=== PATIENT | female | born 1960 | race Caucasian/White ===

== ENCOUNTER → 2016-09-17 | Outpatient (CLI) | payer OTHER, BC ==
[~2016-09-17] MED LIST: ADULT LOW DOSE81 MG PO; BONIVA150 MG PO; FLOVENT HFA 2220 MC1 IH; FOLIC ACID 40400 MC1 PO; HYDROXYCHLOROQ200 M1 PO; LANSOPRAZOLE30 MG PO; LESSINA1 EACH PO; LOVASTAT10 PO; METOCLOPRAMIDE 55 MG PO; MUCINEX600 MG PO; NEURONTIN 400400 M1 PO; NEXIUM40 MG PO; NORCO 5-325 TA1 EACH PO; NOVOLOG100 UNIT/1; OS-CAL 500+D C1 EACH PO; PREDNISONE 5 MG5 M1 PO; PROVENTIL HFA6.7 G1 INH; QVAR8.7 G1 IH; RECLAST 55 MG/1002 IVPB; SEREVENT DISKU50 MCG IH; SM FISH OIL 1,1 EACH PO; SRONYX1 EACH PO; SYNTHROID112 MCG PO; UNIVASC7.5 MG PO; VITAMINC500 PO; XIFAXAN550 M1 PO; ZOFRAN ODT4 M1 PO; ZYRTEC10 M2 PO
== END ==
LOC: CAT 14:19
DX: C43.39 Malignant melanoma of other parts of face (principal); B18.2 Chronic viral hepatitis C; J45.909 Unspecified asthma, uncomplicated; M32.9 Systemic lupus erythematosus, unspecified; H92.01 Otalgia, right ear; E11.9 Type 2 diabetes mellitus without complications; H90.5 Unspecified sensorineural hearing loss

== ENCOUNTER → 2016-11-14 | Outpatient (CLI) | payer OTHER, BC | LOC: RAD 02:08 | DX: Z12.31 Encounter for screening mammogram for malignant neoplasm of breast (principal) ==

== ENCOUNTER → 2017-08-04 | Outpatient (CLI) | payer OTHER, BC ==
[~2017-08-04] VITALS: Ht 165.1 cm; Wt 77.1 kg
[~2017-08-04] MED LIST changes: +GABAPENTIN 100100 MG PO; +HUMALOG100 UNIT/1 SUBQ; +LEVOTHYROXINE137 MCG PO; +MOEXIPRIL HCL7.5 MG PO; +PRAVACHOL40 MG PO; +PREDNISONE 10 M10 MG PO; +QVAR8.7 G1 INH; +SEREVENT DISKU50 MCG INH
--- NOTE | ~2017-08-04 | S ---
[facility] [place] [address] SURGICAL PATH RPT PROCEDURE Name: CONNIE CARLOS Room #: REG MARCOS Mayes#: [id number] Admission: 08/04/17 Date of : 58 Discharge: Report #: [id number] Path Case #: [id number] PATHOLOGY REPORT COLLECTION DATE: 08/04/2017 RECEIVED DATE: 08/04/2017 SUBMITTING PHYS: Dr. Ezra Fernandez OTHER PHYS: Dr. Yanet Fong SPECIMEN(S) RECEIVED: A.Bx of gastritis B.Bx of random colon r/o colitis * * * * * * * * * * * * FINAL DIAGNOSIS: A. Gastric mucosa, gastritis, endoscopic biopsy: - Mild chronic inflammation with one fragment showing features of reactive gastropathy. - Negative for intestinal metaplasia or atrophy. - Negative for Helicobacter pylori. B. Large intestinal mucosa, random colon r/o colitis, endoscopic biopsy: - Findings compatible with collagenous colitis (please see comment). (IUV:enrique; 08/05/2017) COMMENT: A. Well-controlled Helicobacter pylori immunohistochemical stain performed on block A1- Negative. B. Examination shows thickened subepithelial collagen in a background of increased cellularity within the lamina propria, as well as increased apoptotic figures throughout the epithelium. Intraepithelial lymphocytosis is not identified. Findings are compatible with collagenous colitis. Please correlate clinically and follow-up as indicated. Part B co-reviewed by Dr. Zahira Maxwell. (IUV:enrique; 08/05/2017) PATHOLOGIST: Nela Torres M.D. REPORT ELECTRONICALLY SIGNED BY: Nela Torres M.D. DATE/TIME: 08/05/2017 14:06 * * * * * * * * * * * * GROSS PATHOLOGY: A. Received in formalin labeled "Connie Carlos, BX of gastritis," are 4 segments of cazares soft tissue measuring 1.4 x 1.1 x 0.3 cm in aggregate dimensions and ranging from 0.3 to 0.5 cm in maximum [address] [address] SURGICAL PATH RPT PROCEDURE Name: CONNIE CARLOS Room #: REG [facility]#: [id number] Admission: 08/04/17 Date of : 58 Discharge: Report #: [id number] Path Case #: [id number] dimension. The specimen is submitted entirely in cassette A1. B. Received in formalin labeled "Connie Terrance, BX of random colon, rule out colitis," are multiple (more than 10) segments of cazares soft tissue measuring 2.0 x 0.6 x 0.2 cm in aggregate dimensions and ranging from 0.2 to 0.3 cm in maximum dimension. The specimen is submitted entirely in cassette B1. (TSD; 08/04/2017) CLINICAL HISTORY: Pre-OP DX: Abdominal pain, change in bowel habits Post-OP DX: Gastritis, questionable colitis INITIAL CPT CODE(S): A; 82314, 28375 B; 77372 Professional services performed by [facility] at [facility] [address], [place] [address] Technical services performed by [facility] at [address] [place] [address], [address], [place] [address]. [facility] [address] [place] [address] PHONE: [phone] DIRECTOR: Eliseo Bello M.D. * * * END OF REPORT * * *
--- NOTE | ~2017-08-04 | P ---
[facility] [place] [address] PROCEDURE REPORT Name: CATHIE RODRIGUEZ [id number] Admission: 08/04/17 Attend Phys: Ezra Fernandez MD Discharge: Date of : 58 Report #: [id number] THIS REPORT FOR: //name// CC: Ezra Fong MD BRIEF HISTORY: The patient is a 57-year-old woman with upper abdominal pain. She also has recurrent solid food dysphagia and has had dilation in the past. She does have a history of lupus and hepatitis C, which has been treated. PREOPERATIVE DIAGNOSES: Abdominal pain and solid food dysphagia. POSTOPERATIVE DIAGNOSES: 1. Moderate diffuse gastritis. 2. Small hiatus hernia. 3. Mild Schatzki ring. MEDICATIONS: Deep sedation with propofol per Anesthesia. SPECIMEN: Biopsies of gastritis. ESTIMATED BLOOD LOSS: 3 mL. PROCEDURE: EGD with biopsy, Vergara dilation. FINDINGS: Prior to propofol sedation, procedure of upper endoscopy was reviewed with the patient as well as potential risks and its complications. She indicates she understands and desires to proceed. The patient was placed in left lateral decubitus position, the [employer] video endoscope was inserted in the cervical esophagus under direct vision without difficulty. Examination of this organ through its entire length revealed normal esophageal mucosa down to the squamocolumnar junction. The mucosa was intact. She is on prednisone chronically. There is no evidence of Eboni esophagitis. There is no evidence of peptic esophagitis. There are no Larsen strictures or mass lesions. A mild Schatzki ring was seen. A small 2-3 cm hiatus hernia was seen as well. Scope was advanced into the stomach, which was examined on end view as well as retroflexed views. There was a pattern of diffuse gastritis. No ulcers or erosions were seen. Upon retroflexion, the hiatus hernia was seen. No other abnormalities were identified. The pylorus, duodenal bulb and postbulbar duodenal sweep were inspected and noted to be unremarkable. At that point, the scope was slowly withdrawn and careful circumferential views confirmed the above findings. The patient tolerated the procedure well. Biopsies obtained of the gastritis. Subsequently, she was dilated with passage of 50-Brazilian Vergara dilator. There [address] [address] PROCEDURE REPORT Name: JENNIFERCATHIE Room #: REG [facility]#: [id number] Admission: 08/04/17 Attend Phys: Ezra Fernandez MD Discharge: Date of : 58 Report #: [id number] was no resistance. CONDITION OF THE PATIENT UPON DISCHARGE: Following procedure, the patient was drowsy, aroused, conversant and will be discharged home when fully ambulatory. INSTRUCTIONS TO THE PATIENT AND FAMILY AT THE TIME OF DISCHARGE: As far as her dysphagia, she did have a ring, which was dilated again. No other esophageal abnormalities were seen other than a small hiatus hernia. As far as her pain, esophageal mucosa was normal. She may have dyspepsia. She does take steroids chronically. We will follow up on biopsies with regard to the gastritis. We will increase her lansoprazole to 30 mg twice daily. Consider imaging the abdomen such as ultrasound or CT if her symptoms do not improve. At this time, we will proceed with colonoscopy. <ELECTRONICALLY SIGNED> By: Ezra Fernandez MD 08/05/17 2032 [id number] Ezra Fernandez MD /nt
--- NOTE | ~2017-08-04 | P ---
[facility] [place] [address] PROCEDURE REPORT Name: CATHIE RODRIGUEZ Room #: REG [facility]#: [id number] Admission: 08/04/17 Attend Phys: Ezra Fernandez MD Discharge: Date of : 58 Report #: [id number] THIS REPORT FOR: //name// CC: Ezra Fong MD BRIEF HISTORY: The patient is a 57-year-old woman who has had recent modification of bowel habits, and she is passing pencil like stools. She also has had diffuse lower abdominal pain. PREOPERATIVE DIAGNOSES: Modification in bowel habits and abdominal pain. POSTOPERATIVE DIAGNOSES: Questionable colitis with subtle mucosal changes. MEDICATIONS: Deep sedation with propofol per Anesthesia. SPECIMEN: Random biopsies of the colon. ESTIMATED BLOOD LOSS: 3 mL. PROCEDURE: Colonoscopy to cecum and terminal ileum with biopsy. FINDINGS: Prior to propofol sedation, procedure of colonoscopy discussed with the patient as well as potential risks and its complications. She indicates she understands and desires to proceed. DESCRIPTION OF PROCEDURE: With the patient in left lateral decubitus position, digital examination was completed which revealed no abnormalities. Subsequently, the [employer] video colonoscope was introduced in the rectum, advanced under direct vision to the cecum. Done with minimal difficulty. The cecum was identified by the ileocecal valve and the appendiceal orifice. I was able to visualize the distal segment of terminal ileum. There was no evidence of inflammatory bowel disease. I was able to visualize 15-20 cm of the terminal ileum. At that point, the scope was slowly withdrawn and careful circumferential views were obtained including retroflexing the scope in the ascending colon. As we withdrew the scope, the prep was good. Mucosa was within normal limits, normal vascular pattern, normal light reflex generally speaking. No neoplastic or inflammatory changes were seen any time during this examination. As we withdrew the scope, in particular in the transverse colon, descending colon, there was a very slight scalloped appearance to the mucosa. The mucosa was completely intact without ulcers, erosions or friability. The vascular pattern was normal. This subtle change may not be significant, but in view of her symptoms, random biopsies were obtained. Again, no obvious inflammatory disease was seen. Scope was withdrawn through the remaining colon, was unremarkable. Scope was withdrawn in the rectum. Upon retroflexion, no abnormalities were seen. Scope was withdrawn. The patient tolerated the [address] [address] PROCEDURE REPORT Name: CATHIE RODRIGUEZ Jimmy [id number] Admission: 08/04/17 Attend Phys: Ezra Fernandez MD Discharge: Date of : 58 Report #: [id number] procedure well. CONDITION OF THE PATIENT UPON DISCHARGE: Following procedure, the patient was drowsy, aroused and conversant. She will be discharged home when fully ambulatory. INSTRUCTIONS TO THE PATIENT AND FAMILY AT THE TIME OF DISCHARGE: I do not see any lesions to explain her change in bowel habits or her abdominal pain. We will follow up on biopsies obtained today. At this point in time, suggest high fiber diet. I would suggest a probiotic as well. As for her lower abdominal pain, suggest dicyclomine 10-20 mg every 6 hours as needed. We will discuss with the patient, and if symptoms persist, CT scan of the abdomen and pelvis may be indicated. We will follow up on biopsies. For colorectal screening, she should return in 10 years for colonoscopy. If her symptoms persist, she can return for followup in the office. Withdrawal time from the cecum was 19 minutes 45 seconds. <ELECTRONICALLY SIGNED> By: Ezra Fernandez MD 08/05/17 2032 0832 Ezra Fernandez MD /nt
== END | disposition home or self-care (01) ==
LOC: GI 06:24
DX: K52.831 Collagenous colitis (principal); K31.9 Disease of stomach and duodenum, unspecified; K44.9 Diaphragmatic hernia without obstruction or gangrene; K22.2 Esophageal obstruction; I10 Essential (primary) hypertension; E11.9 Type 2 diabetes mellitus without complications; E78.5 Hyperlipidemia, unspecified; J45.909 Unspecified asthma, uncomplicated; K21.9 Gastro-esophageal reflux disease without esophagitis; E03.9 Hypothyroidism, unspecified; Z79.4 Long term (current) use of insulin; Z90.49 Acquired absence of other specified parts of digestive tract; Z85.828 Personal history of other malignant neoplasm of skin; Z88.2 Allergy status to sulfonamides; Z88.8 Allergy status to other drugs, medicaments and biological substances; Z79.82 Long term (current) use of aspirin; Z79.899 Other long term (current) drug therapy
CPT/HCPCS: 62110; 62900

== ENCOUNTER → 2017-09-23 | Outpatient (CLI) | payer OTHER, BC | LOC: CAT 06:44 → RAD 16:54 → CAT 16:59 | DX: C43.39 Malignant melanoma of other parts of face (principal); M47.892 Other spondylosis, cervical region; E11.9 Type 2 diabetes mellitus without complications; B18.2 Chronic viral hepatitis C ==

== ENCOUNTER → 2017-11-19 | Outpatient (CLI) | payer OTHER, BC | LOC: RAD 13:14 | DX: Z12.31 Encounter for screening mammogram for malignant neoplasm of breast (principal); E11.9 Type 2 diabetes mellitus without complications; C43.39 Malignant melanoma of other parts of face ==

== ENCOUNTER → 2018-12-03 | Outpatient (CLI) | payer OTHER, BC | LOC: RAD 08:39 | DX: Z12.31 Encounter for screening mammogram for malignant neoplasm of breast (principal) ==

== ENCOUNTER → 2019-12-08 | Outpatient (CLI) | payer OTHER, BC | LOC: RAD 09:41 | PROVIDERS: ATTEND Obstetrics & Gynecology | DX: Z12.31 Encounter for screening mammogram for malignant neoplasm of breast (principal) ==

== ENCOUNTER → 2020-11-14 | Outpatient (CLI) | payer OTHER, BC ==
[2020-11-14 21:06] LABS: IgA 80 mg/dL (87-352); IgG 869 mg/dL (586-1602); IgM 64 mg/dL (26-217)
== END ==
LOC: MRI 08:16
PROVIDERS: ATTEND Psychiatry & Neurology Neuromuscular Medicine
DX: M47.24 Other spondylosis with radiculopathy, thoracic region (principal); M47.22 Other spondylosis with radiculopathy, cervical region; M48.02 Spinal stenosis, cervical region; G62.9 Polyneuropathy, unspecified

== ENCOUNTER → 2020-11-28 | Outpatient (CLI) | payer OTHER, BC | LOC: MRI 12:37 | PROVIDERS: ATTEND Psychiatry & Neurology Neuromuscular Medicine | DX: M43.12 Spondylolisthesis, cervical region (principal); M47.817 Spondylosis without myelopathy or radiculopathy, lumbosacral region; M25.78 Osteophyte, vertebrae; M48.02 Spinal stenosis, cervical region ==

== ENCOUNTER → 2020-12-11 | Outpatient (CLI) | payer OTHER, BC | LOC: BC 09:59 | PROVIDERS: ATTEND Internal Medicine | DX: Z12.31 Encounter for screening mammogram for malignant neoplasm of breast (principal) ==